=== PATIENT | female | born 1980 | race Caucasian/White ===

== ENCOUNTER → 2019-04-08 08:50 | Outpatient (CLI) | payer OTHER, SELFPAY ==
--- NOTE | 2019-04-08 08:58 | DI.US.S_ITS ---
PROCEDURE: US OB >= 14 WEEKS FETUS INDICATIONS: Initial US : Dating and Viability OUTSIDE/PRIOR DATING DATA: Last menstrual period (LMP): 12/06/18. LMP-based estimated date of delivery (HERB): 09/12/19. First dating scan (date and location): 04/08/19. Estimated date of delivery (HERB) from first dating scan: 09/01/19. TECHNIQUE: Real-time scanning was performed of the fetus, with image documentation and biometric measurements. Endovaginal scanning: No COMPARISON: None. FINDINGS: General: A single living intrauterine gestation is present. Presentation: Vertex. Placenta: Placental position is anterior, without previa. Amniotic fluid index: 16.1 cm, normal range is 5-24 cm. heart rate: 149 beats per minute. Maternal cervical canal: 3.5 cm long. Normal lower limit is 2.5 cm. biometrics: Biparietal diameter: 19 weeks 1 day Head circumference: 19 weeks 4 days Abdominal circumference: 19 weeks 1 day Femur length: 18 weeks 4 days Estimated gestational age from initial scan: not applicable. Composite gestational age from present scan: 19 weeks 1 day Estimated weight and percentile: 266 g Measurement variability for biometric dating: +/- 7 days from 14 weeks to 15 weeks 6 days gestation, +/- 10 days from 16 weeks to 21 weeks 6 days gestation, +/- 2 weeks from 22 weeks to 27 weeks 6 days gestation, +/- 3 weeks for 28 weeks gestation or later. weight reference: 4500 g or EFW >90/95% is considered macrosomia or large for gestational age. EFW <10% is small for gestational age. EFW 5% or less is considered intra-uterine growth restriction. Anatomic survey: Neuro: Ventricles are non-dilated at less than 10 mm. Cisterna magna is normal at 3-11 mm. Cerebellum is normal in size and morphology. Nuchal skin fold: Normal at less than 6 mm between 14-21 weeks gestational age. Face: Nose and lips, facial profile are normal. Spine: No evidence for spina bifida. Heart: 4-chambered heart is present, with normal ventricular outflow tracts. Diaphragm: Diaphragm is intact. Stomach: Left-sided stomach is present. Kidneys: No hydronephrosis. Mild pyelectasis with the right renal pelvis measuring 4.5 mm and the left 4.7 mm Normal is less than 5 mm in 2nd trimester, less than 7 mm in 3rd trimester. Cord: 3-vessel cord has orthotopic insertion. Bladder: Normal in size. Extremities: All 4 extremities identified. IMPRESSION: 1. Single living IUP with mean composite gestational age of 19 weeks 1 day corresponding to HERB of 09/01/19. 2. Mild bilateral renal pelviectasis; otherwise normal anatomic survey. Dictated by: Luis BESS Interpreted: Parul Bradshaw MD on 04/08/2019 at 10:13 Approved by: Parul Bradshaw M.D. on 04/08/2019 at 11:42
[2019-04-08 10:19] LABS: Add Manual Diff / Slide Review NO; Basophils Absolute Auto 0 /uL (0-100); Basophils Percent Auto 0.1 % (0-2); Eosinophils Absolute Auto 0 /uL (0-450); Eosinophils Percent Auto 0.4 % (2-4); Hemoglobin 12.5 g/dL (12.0-16.0); Lymphocytes Absolute Auto 1700 /uL (1100-4500); Lymphocytes Percent Auto 16.7 % (25-40); Mean Corpuscular HGB Conc 34.6 % (30-36); Mean Corpuscular Hemoglobin 30.2 PG (26-34); Mean Corpuscular Volume 87.2 fL (80-100); Monocytes Absolute Auto 400 /uL (0-900); Monocytes Percent Auto 4.3 % (3-14); Neutrophils Absolute Auto 7900 /uL (1500-7000); Neutrophils Percent Auto 78.5 % (50-75); Platelet Count 188 X10^3/uL (150-400); Red Blood Cell Count 4.13 X10^6/uL (4.0-5.2); Red Cell Distribution Width 13.6 % (11.6-14.8)
[2019-04-08 10:44] LABS: Glucose 85 mg/dL (70-100)
[2019-04-08 10:57] LABS: Appearance Urine UA CLEAR; Bilirubin Urine UA NEGATIVE (NEGATIVE); Color Urine UA YELLOW; Glucose Urine UA NEGATIVE (Negative); Ketones Urine UA NEGATIVE (NEGATIVE); Leukocyte Esterase Urine UA NEGATIVE (NEGATIVE); Nitrite Urine UA NEGATIVE (Negative); Occult Blood Urine UA NEGATIVE (Negative); Protein Urine UA NEGATIVE (Negative); Specific Gravity Urine UA 1.015 (1.000-1.035); Urobilinogen Urine UA 0.2 E.U./dL (0.2)
[2019-04-08 11:23] LABS: Hepatitis B Surface Antigen NEGATIVE s/c (NEGATIVE); Rubella Antibody IgG 7.7 IU/mL (>15)
[2019-04-08 11:32] LABS: Hemoglobin A1C% w Est Avg Glu 4.7 % (4.0-6.0)
[2019-04-08 17:08] LABS: Hep C Virus Ab w/Reflex Quant NEGATIVE s/c (NEGATIVE)
[2019-04-10 12:34] LABS: RPR Screen Nonreactive (Nonreactive)
== END ==
PROVIDERS: Visit Provider Specialist
DX: O09.512 Supervision of elderly primigravida, second trimester (principal); Z3A.19 19 weeks gestation of pregnancy
CPT/HCPCS: 36415; 76811; 80055; 81003; 82947; 83036; 86787; 86803; 86850; 86900; 86901; 87077; 87086

== ENCOUNTER → 2019-04-12 12:50 | Outpatient (CLI) | payer OTHER, SELFPAY | PROVIDERS: Visit Provider Specialist | DX: Z34.82 Encounter for supervision of other normal pregnancy, second trimester (principal) | CPT/HCPCS: 87086 ==

== ENCOUNTER → 2019-04-15 15:54 | Outpatient (CLI) | payer OTHER, SELFPAY ==
[2019-04-21 14:01] LABS: AFP, Serum 43.1 ng/mL; Calc Gestational Age 20.1; Cigarette Smoker NOT GIVEN; Donated Egg NOT GIVEN; Donor Egg Age NOT GIVEN; Estriol, Free 1.51 ng/mL; Inhibin A, Dimeric 58 pg/mL; Maternal Ethnicity NOT GIVEN; Maternal Weight 182 lbs; Number of Fetuses NOT GIVEN; Previous Pregnancy Down Syndro NOT GIVEN; hCG, MoM 0.31; hCG, Serum 5.3 IU/mL
== END ==
PROVIDERS: PCP Family Medicine; Visit Provider Specialist
DX: Z34.82 Encounter for supervision of other normal pregnancy, second trimester (principal)
CPT/HCPCS: 36415; 82105; 82677; 84702; 86336

== ENCOUNTER → 2019-07-01 12:25 | Outpatient (CLI) | payer OTHER, SELFPAY ==
[2019-07-01 13:22] LABS: Fetal Fibronectin Negative
== END ==
PROVIDERS: PCP Family Medicine; Visit Provider Specialist
DX: O60.00 Preterm labor without delivery, unspecified trimester (principal)
CPT/HCPCS: 82731

== ENCOUNTER → 2019-07-15 11:38 | Outpatient (CLI) | payer OTHER, SELFPAY ==
[2019-07-15 13:22] LABS: Hematocrit 35.9 % (36-46); Hemoglobin 12.3 g/dL (12.0-16.0)
[2019-07-15 16:17] LABS: GTT (PREG) 1 Hour PP 50gm Dose 170 mg/dL (76-139)
== END ==
PROVIDERS: Visit Provider Specialist
DX: Z34.82 Encounter for supervision of other normal pregnancy, second trimester (principal)
CPT/HCPCS: 82950; 85014; 85018

== ENCOUNTER → 2019-08-19 09:45 | Outpatient (CLI) | payer OTHER, SELFPAY ==
[2019-08-20 17:15] LABS: Strep Grp B PCR POS for Grp B Strep
== END ==
PROVIDERS: Visit Provider Specialist
DX: Z34.83 Encounter for supervision of other normal pregnancy, third trimester (principal); Z3A.36 36 weeks gestation of pregnancy
CPT/HCPCS: 87653

== ENCOUNTER 2019-09-02 13:16 | Outpatient (CLI) | payer OTHER, SELFPAY ==
--- NOTE | 2019-09-02 14:05 | P.TNLD_ITS ---
Visit Information Visit Information Date of evaluation: 09/02/19 Primary OB Provider: Renetta Jefferson Reason for Evaluation: Yes rule out labor [facility] Medical History (Updated 09/02/19 @ 14:06 by Renetta Jefferson MD) Anxiety (Chronic ~1999) Depression (Chronic ~2015) Eczema (Chronic ~2015) Migraines (Chronic) Vertigo (Chronic ~2002) Surgical History (Updated 05/01/19 @ 21:24 by Denice Norton) Anesthesia (Resolved) History of cholecystectomy (Resolved ~10/2014) Family History (Updated 05/01/19 @ 21:25 by Denice Norton) Father Hyperlipidemia Stroke Mother Diabetes mellitus Hypertension Hyperlipidemia Sister Hypertension Social History Smoking Status: Never smoker Evaluation Evaluation Baseline heart rate: 130 Variability: Moderate (11-25) monitor accelerations: Present monitor decelerations: Absent Contraction Frequency (minutes): 5 Uterine Contraction Intensity: Mild Category of Tracing: I Cervical dilation (cm): 4 Cervical effacement (%): 80 station: -1 Diagnosis, Plan/Disposition Final Diagnosis (1) Multigravida in third trimester: Current Visit: No Status: Acute (2) contractions: Current Visit: Yes Status: Acute Plan/Disposition Plan: Patient with no significant change in her cervix over the past few hours. Consent form were signed for AROM induction on 09/05 due to advanced cervical dilation, distance from the hospital, and positive group B strep culture OB Disposition: home
== END 2019-09-02 14:13 | disposition home or self-care (01) ==
LOC: LABOR 14:11 → OB 09-05 13:33
PROVIDERS: Visit Provider Specialist
DX: O09.523 Supervision of elderly multigravida, third trimester (principal); Z3A.38 38 weeks gestation of pregnancy
CPT/HCPCS: 59025; G0378; G0379

== ENCOUNTER 2019-09-05 02:01 | Inpatient (IN) | payer OTHER, SELFPAY ==
[2019-09-05] MEDS: LACTATED RINGERS 1,000 ML 100 ML IV (02:30)
--- NOTE | 2019-09-05 02:45 | P.HPOB_ITS ---
OB HPI Date/Time Date of admission: 09/05/19 Date Patient Seen: 09/05/19 Time Patient Seen: 02:46 History of Present Condition Chief complaint: evaluation of labor : 3 Para: 2 Estimated Date of Delivery: 09/12/19 Estimated Gestational Age (weeks): 39 Narrative: Kelley Freeman is a 39 year old female admitted in active labor History of Present care: good care, initiated at week # (18), number of visits (11) and pounds weight gain (7) Dating criteria: LMP confirmed by 2nd trimester US Ultrasounds: normal mid trimester US Obstetrical complications: none Medical complications: none Preadmission Labs Blood type: A (+) positive -: Antibody screen: negative, GBS status: positive, HBsAG: negative, HIV: negative, HSV 1: negative, HSV 2: negative and RPR/VDLR: negative -: Rubella: not immune and Varicella: immune HCAB: negative PAP: Normal Quad screen: Normal 1 hr GTT: 170 Prior (ies) History: 03/29/14 39 week gestation male 7 lb 6 oz vaginal delivery 05/08/16 35 week gestation male infant 6 lb 4 oz vaginal delivery induced for PROM Evaluation Evaluation Baseline heart rate: 130 Variability: Minimal (3-5) monitor accelerations: Present monitor decelerations: Early Contraction Frequency (minutes): 5 Uterine Contraction Intensity: Moderate Category of Tracing: I Cervical dilation (cm): 8 Cervical effacement (%): 90 station: -2 [facility] Medical History (Updated 09/02/19 @ 14:06 by Renetta Jefferson MD) Anxiety (Chronic ~1999) Depression (Chronic ~2015) Eczema (Chronic ~2015) Migraines (Chronic) Vertigo (Chronic ~2002) Surgical History (Updated 05/01/19 @ 21:24 by Denice Norton) Anesthesia (Resolved) History of cholecystectomy (Resolved ~10/2014) Family History (Updated 05/01/19 @ 21:25 by Denice Norton) Father Hyperlipidemia Stroke Mother Diabetes mellitus Hypertension Hyperlipidemia Sister Hypertension Social History Smoking Status: Never smoker Meds Home Medications and Allergies Home Medications Medication Instructions Recorded Confirmed Type prenat.vits,jules,ukg-cwvf-gfofz 1 tab PO DAILY 04/06/19 04/06/19 History sertraline 50 mg tablet 50 mg PO DAILY 04/06/19 04/06/19 History tugkoxnbjr-ahzukpcsenzfl-njxktqhe 1 cap PO Q6H PRN #20 cap 07/01/19 07/01/19 Rx 50 mg-300 mg-40 mg capsule blood-glucose meter #1 each 08/12/19 08/12/19 Rx lancets-blood glucose strips 30 #100 each 08/12/19 08/12/19 Rx gauge and blood glucose strips combo pack Allergies Allergy/AdvReac Type Severity Reaction Status Date / Time No Known Drug Allergies Allergy Verified 04/06/19 11:13 Review of Systems Review of Systems Narrative: No leakage of fluid, no headaches or scotoma ROS Unobtainable: All systems reviewed & are unremarkable except as noted in HPI and below Exam Vital Signs (past 8 hours): Blood pressure 133/67, pulse of 92, temperature 36.2? Narrative Exam Narrative: HEENT exam within normal limits. Lungs are clear to auscultation percussion. Heart is regular rate and rhythm no S3-S4 or murmurs. Abdomen is soft, nontender with vertex. Extremities without edema and nontender. Objective Labs Result Diagrams: 09/05/19 02:30 Assessment and Plan Assessment and Plan Assessment and Plan narrative: 39 week gestation in active labor. Positive group B strep. IV penicillin and patient is requesting epidural.
[2019-09-05 02:54] LABS: Add Manual Diff / Slide Review NO; Basophils Absolute Auto 0 /uL (0-100); Basophils Percent Auto 0.3 % (0-2); Eosinophils Absolute Auto 100 /uL (0-450); Eosinophils Percent Auto 0.6 % (2-4); Hematocrit 39.4 % (36-46); Hemoglobin 13.6 g/dL (12.0-16.0); Lymphocytes Absolute Auto 2200 /uL (1100-4500); Lymphocytes Percent Auto 16.7 % (25-40); Mean Corpuscular HGB Conc 34.6 % (30-36); Mean Corpuscular Hemoglobin 29.6 PG (26-34); Mean Corpuscular Volume 85.5 fL (80-100); Monocytes Absolute Auto 600 /uL (0-900); Monocytes Percent Auto 4.8 % (3-14); Neutrophils Absolute Auto 10300 /uL (1500-7000); Neutrophils Percent Auto 77.6 % (50-75); Platelet Count 192 X10^3/uL (150-400); Red Blood Cell Count 4.61 X10^6/uL (4.0-5.2); White Blood Cell Count 13.3 X10^3/uL (4.5-11.0)
[2019-09-05] MEDS: FENT 2MCG/ML BUPIV 0.125% EPI 200 MCG/100 ML PLAST..BAG 13 MCG EPIDURAL (03:36)
[2019-09-05] MEDS: OXYTOCIN PREMIX 30 UNIT/500 ML PLAST..BAG 350 UNIT IV (06:00)
--- NOTE | 2019-09-05 06:06 | PM.OBPRVD ---
Labor & Delivery Delivery date: 09/05/19 Intrapartal events: None Induction method: none Delivery monitor: external FHT and external uterine Route of delivery: L&D Laceration Description: None Estimated blood loss (mL): 200 Anesthesia type: Epidural Narrative: Patient arrived on Labor and delivery in active labor. She received IV penicillin for positive group B strep culture. She received epidural catheter for pain control. heart tones category 1 to category 2 throughout labor. Just prior to delivery the bag of water was ruptured and was clear fluid. The infant was delivered spontaneously, over an intact perineum and placed on the maternal abdomen. There was a loose nuchal cord that was released. After the cord stopped pulsating the cord was clamped cut and cord bloods obtained. The placenta delivered spontaneously, intact, with 3 vessels. There were no cervical, vaginal, or perineal tears. Both infant mother doing well. Baby weighed 7 lb 3 oz [facility] Baby 1: Infant gender: Male Presentation: vertex position: Right Occiput Anterior Placenta delivery description: Spontaneous cord vessel description: Nuchal Cord score (1 min): 8 score (5 min): 9 Plan for aftercare: Routine post vaginal delivery
[2019-09-05] MEDS: IBUPROFEN 600 MG TABLET PO ×2 (10:50→16:48)
[2019-09-05] MEDS: LANOLIN OINT 7 GM 1 APPLIC TOP (10:51)
[2019-09-06] MEDS: IBUPROFEN 600 MG TABLET PO (05:17)
[2019-09-06 06:58] LABS: Hematocrit 30.3 % (36-46); Hemoglobin 10.5 g/dL (12.0-16.0)
[2019-09-06 08:40] VITALS: BP 112/56; PULSE 83; RESP 16; TEMP 36.7
[2019-09-06] MEDS: DOCUSATE 250 MG CAPSULE PO (08:56)
[2019-09-06] MEDS: PRENATAL VIT,CALC/IRON/FOLIC 1 TABLET 1 TAB PO (08:57)
--- NOTE | 2019-09-06 09:31 | P.DS_ITS ---
Discharge Providers Provider Date of admission: 09/05/19 02:01 Discharge Date: 09/06/19 Consults: 09/05/19 02:30 Consult to Anesthesiology Urgent Comment: Consulting Provider: Anesthesiologist Reason for consultation: Epidural Has provider been notified: No 09/05/19 06:08 Consult to Washer Engineer Helper Routine Comment: Discharge provider: Renetta Jefferson MD Summary Hospital Course Date Patient Seen: 09/06/19 Time Patient Seen: 09:32 Procedures: IV Antibiotics for positive group B strep culture, epidural cathet er, spontaneous vaginal delivery Hospital Course: Patient arrived in Labor and delivery in active labor. She received an epidural catheter for pain control and IV antibiotics for positive group B strep culture. She had a spontaneous vaginal delivery with no tears. She did well . Peripartum Data Infant Delivery Method: Natural Vaginal Laceration description: None complications: none 1: Gender: Male Disposition of : home Discharge Diagnosis (1) Vaginal delivery: Status: Acute Status at Discharge Cognitive/behavioral status at discharge: oriented Functional status at discharge: independent ambulation Overall status at discharge: patient is progressing back to baseline Time Spent with Patient Time attestation: Total time spent providing and/or coordinating discharge services: Time spent: Less than 30 minutes Objective Labs Result Diagrams: 09/06/19 06:26 Labs: Laboratory Results - last 24 hr 09/06/19 06:26 Hgb 10.5 L Hct 30.3 L Exam Vital Signs (past 8 hours): - 09/06/19 08:40 Temperature 98.1 F Pulse Rate 83 Respiratory Rate 16 Blood Pressure 112/56 L Narrative Exam Narrative: Abdomen is soft, nontender. Uterus is firm, at U, nontender. Mild lochia. Extremities without edema and nontender. Patient is A positive and rubella nonimmune. She will says receive rubella vaccine prior to discharge. Will attempt to also immunize her with the Tdap Discharge Plan Discharge Plan Patient Disposition: Home Discharge Med Rec/Prescriptions Prescriptions: Continued sertraline 50 mg tablet See Rx Instructions .ROUTE .COMPLEX RF: 0 prenat.vits,jules,zay-llca-spjhk tablet 1 tab PO DAILY RF: 0 No Action (DME) blood-glucose meter Misc See Rx Instructions .ROUTE .MEDSUPPLY Qty: 1 RF: 0 (DME) lancets-blood glucose strips 30 gauge combo pack See Rx Instructions .ROUTE .MEDSUPPLY Qty: 100 RF: 1 Follow up/Referrals: Renetta Jefferson MD [Physician] - 1 Month Provider Discharge Instructions Diet: Regular Activity: Nothing in vagina for 4 weeks Skin/Wound/Dressing Care Report to your healthcare provider any signs of infection, such as:: chills, fever and increased pain
[2019-09-06] MEDS: DIPHTH,PERTUSS(ACELL),TET VAC 0.5 ML SYRINGE IM (11:33)
[2019-09-06] MEDS: MEASLES,MUMPS,RUBELLA VACC/PF 0.5 ML VIAL SUBCUT (11:36)
== END 2019-09-06 12:10 | disposition home or self-care (01) | DRG 807 ==
PROVIDERS: Admitting Provider Specialist; Visit Provider Specialist
DX: O99.824 Streptococcus B carrier state complicating childbirth (principal); Z37.0 Single live birth; Z3A.39 39 weeks gestation of pregnancy; O69.81X0 Labor and delivery complicated by cord around neck, without compression, not applicable or unspecified
CPT/HCPCS: 01967; 36415; 59050; 59400; 85014; 85018; 85025; 86850; 86900; 86901; 90715; G0379; J2590